=== PATIENT | female | born 1985 | race Caucasian/White ===

== ENCOUNTER → 2016-08-15 | Outpatient (CLI) | payer OTHER ==
[~2016-08-15] MED LIST: ALLEGRA180 MG PO; AMBIEN10 MG PO; AMOXICILLIN500 MG PO; ATARAX10 MG PO; BACTRIM DS 8001 TAB PO; BIAXIN500 MG PO; BIRTH CONTROL1 EAC1 PO; BRIN10TA PO; CELEXA40 MG PO; CLARITIN10 MG PO; CORDROL20 MG PO; DAYPRO600 M1 PO; DEPAKOTE250 MG PO; DIFLUCAN150 MG PO; Depakote500 MG PO; ESKALITH300 MG PO; GLIPIZIDE2.5 MG PO; HUMALOG100 U/ML SC; HYDROCODONE BIT1 T11 PO; IBU-8800 MG PO; INVEGA1.5 MG PO; LANTUS100 U/ML SC; LITHIUM PO; LOMOTIL 0.025 M1 TAB PO; MACROBID100 M1 PO; MEDROL DOSEPAK4 MG PO; METFORMIN HCL1000 MG PO; METFORMIN1000 MG PO; METFORMIN500 MG PO; MIDRIN (DURADR1 CAP PO; MOTRIN800 MG PO; Metformin Hydr500 MG PO; NAPROSYN500 MG PO; PAXIL PO; PAXIL40 MG PO; PHENERGAN25 M1 PO; PROVENTIL0.09 MG/AC IH; PYRIDIUM200 MG PO; SEROQUEL XR300 MG PO; TOPAMAX2 MG PO; TRAMADOL HCL50 MG PO; VICTOZA6 MG/ML SC; VITAMIN D1000 IU PO; ZOFRAN ODT4 MG SL; ZOLOFT50 MG PO
[2016-08-15 09:15] LABS: BASO % 0.2 % (0.0-1.0); EOS # 0.1 10*3/uL (0.0-0.4); EOS % 1.1 % (1.0-4.0); HEMATOCRIT 32.6 % (37.0-47.0); HEMOGLOBIN 11.1 g/dl (12.0-16.0); LYMPH # 1.6 10*3/uL (1.3-4.4); LYMPH % 28.3 % (27.0-41.0); MEAN CELL VOLUME 94.2 fl (81.0-99.0); MEAN CORPUSCULAR HGB 32.1 pg (27.0-31.0); MEAN PLATELET VOLUME 9.5 fl (9.6-12.3); MONO # 0.3 10*3/uL (0.1-1.0); MONO % 4.9 % (3.0-9.0); NEUT # 3.6 10*3/uL (2.3-7.9); PLATELET COUNT AUTOMATED 232 10*3/uL (130-400); RED BLOOD COUNT 3.46 10*6/uL (4.10-5.10); RED CELL DISTRI WIDTH 13.4 % (0-14.5); WHITE BLOOD COUNT 5.5 10*3/uL (4.8-10.8)
[2016-08-15 09:17] LABS: BILIRUBIN NEGATIVE (NEGATIVE); BLOOD NEGATIVE (NEGATIVE); CLARITY SL CLOUDY (CLEAR); COLOR YELLOW (YELLOW); GLUCOSE NEGATIVE (NEGATIVE); KETONE 1+ (NEGATIVE); LEUKO ESTERASE NEGATIVE (NEGATIVE); NITRITE NEGATIVE (NEGATIVE); PROTEIN NEGATIVE (NEGATIVE); UROBILINOGEN 0.2 E.U./dl (0.2-1.0)
[2016-08-15 09:45] LABS: CHLORIDE 105 mmol/L (98-107); POTASSIUM 4.1 mmol/L (3.5-5.1); SODIUM 139 mmol/L (136-145)
[2016-08-15 10:01] LABS: ALBUMIN 2.9 gm/dl (3.1-4.5); ALKALINE PHOSPHATASE 63 U/L (45-117); BILIRUBIN, DIRECT < 0.1 mg/dL (0.0-0.2); BILIRUBIN, TOTAL 0.6 mg/dl (0.2-1.0); BUN 7 mg/dl (7-24); CARBON DIOXIDE 23 mmol/L (21-32); CHOLESTEROL 162 mg/dL (<200); EST GLOM FILT AFRICAN AMERICAN > 60 ml/min; GLUCOSE 150 mg/dL (65-99); HDL CHOLESTEROL 51 mg/dl (40-60); LDL CHOLESTEROL 70 mg/dL (9-159); MAGNESIUM 1.9 mg/dL (1.5-2.1); SGOT/AST 22 IU/L (3-35); SGPT/ALT 22 U/L (12-78); TOTAL PROTEIN 6.4 gm/dL (6.4-8.2); TRIGLYCERIDES 207 mg/dl (<150); VLDL CHOLESTEROL 41 mg/dL (6-40)
[2016-08-15 10:27] LABS: VITAMIN D, 25-HYDROXY 28.4 ng/mL (30-100)
[2016-08-15 10:28] LABS: HEMOGLOBIN A1c 6.7 % (4.8-5.6); PTH INTACT 34.1 pg/mL (14.0-72.0)
[2016-08-15 10:28] LABS: BACTERIA TRACE; URINE REFLEX COMMENT NO (NO)
[2016-08-16 08:14] LABS: MICRO ALBUMIN/CRE RATIO 2.8 (0.0-30.0)
== END | disposition home or self-care (01) ==
LOC: LAB 08:35
PROVIDERS: Internal Medicine
DX: E11.22 Type 2 diabetes mellitus with diabetic chronic kidney disease (principal); E11.21 Type 2 diabetes mellitus with diabetic nephropathy; E11.40 Type 2 diabetes mellitus with diabetic neuropathy, unspecified; N18.1 Chronic kidney disease, stage 1; E11.65 Type 2 diabetes mellitus with hyperglycemia; E78.5 Hyperlipidemia, unspecified; E55.9 Vitamin D deficiency, unspecified

== ENCOUNTER → 2017-05-01 | Outpatient (CLI) | payer OTHER | END | disposition home or self-care (01) | LOC: RAD 15:52 | DX: M53.3 Sacrococcygeal disorders, not elsewhere classified (principal); M25.551 Pain in right hip; M25.552 Pain in left hip ==

== ENCOUNTER → 2017-10-17 | Outpatient (CLI) | payer OTHER ==
[~2017-10-17] MED LIST changes: +CIPRO500 MG PO; +TOUJEO SOL300 UNIT/1 SC; +TRULICITY1.5 MG/0.5 SC
[2017-10-17 08:42] LABS: BILIRUBIN NEGATIVE (NEGATIVE); BLOOD 2+ (NEGATIVE); CLARITY SL CLOUDY (CLEAR); COLOR YELLOW (YELLOW); GLUCOSE 3+ (NEGATIVE); KETONE NEGATIVE (NEGATIVE); LEUKO ESTERASE NEGATIVE (NEGATIVE); NITRITE NEGATIVE (NEGATIVE); PH 5.5 (5.0-9.0); SPECIFIC GRAVITY 1.025 (1.005-1.030); UROBILINOGEN 0.2 E.U./dl (0.2-1.0)
[2017-10-17 08:55] LABS: MUCOUS TRACE; RBC 16-20 rbc/hpf (0-2)
[2017-10-17 09:01] LABS: BASO % 0.2 % (0.0-1.0); EOS # 0.1 10*3/uL (0.0-0.4); EOS % 2.2 % (1.0-4.0); HEMOGLOBIN 14.5 g/dl (12.0-16.0); LYMPH # 1.7 10*3/uL (1.3-4.4); LYMPH % 41.1 % (27.0-41.0); MEAN CELL VOLUME 93.1 fl (81.0-99.0); MEAN CORPUSCULAR HGB 31.4 pg (27.0-31.0); MEAN CORPUSCULAR HGB CONC 33.7 g/dl (33.0-37.0); MEAN PLATELET VOLUME 9.7 fl (9.6-12.3); MONO # 0.2 10*3/uL (0.1-1.0); MONO % 5.8 % (3.0-9.0); NEUT # 2.1 10*3/uL (2.3-7.9); NEUT % 50.5 % (47.0-73.0); PLATELET COUNT AUTOMATED 234 10*3/uL (130-400); RED BLOOD COUNT 4.62 10*6/uL (4.10-5.10); RED CELL DISTRI WIDTH 12.1 % (0-14.5); WHITE BLOOD COUNT 4.2 10*3/uL (4.8-10.8)
[2017-10-17 09:12] LABS: ALBUMIN 3.6 gm/dl (3.1-4.5); ALKALINE PHOSPHATASE 98 U/L (45-117); BILIRUBIN, DIRECT 0.1 mg/dL (0.0-0.2); BUN 11 mg/dl (7-24); CHLORIDE 103 mmol/L (98-107); CHOLESTEROL 187 mg/dL (<200); CREATININE 0.64 mg/dL (0.55-1.02); FREE T4 1.05 ng/dl (0.76-1.46); HDL CHOLESTEROL 34 mg/dl (40-60); LDL CHOLESTEROL 110 mg/dL (9-159); POTASSIUM 4.3 mmol/L (3.5-5.1); SGOT/AST 69 IU/L (3-35); SGPT/ALT 98 U/L (12-78); SODIUM 139 mmol/L (136-145); TOTAL PROTEIN 6.9 gm/dL (6.4-8.2); TRIGLYCERIDES 215 mg/dl (<150); VLDL CHOLESTEROL 43 mg/dL (6-40)
[2017-10-17 09:45] LABS: VITAMIN D, 25-HYDROXY 20.1 ng/mL (30-100)
[2017-10-18 10:07] LABS: CREATININE,URINE 110.9 mg/dL (Not Estab.); MICRO ALBUMIN/CRE RATIO 24.8 (0.0-30.0)
== END | disposition home or self-care (01) ==
LOC: LAB 07:28 → US 07:30
PROVIDERS: Internal Medicine
DX: K76.0 Fatty (change of) liver, not elsewhere classified (principal); E78.5 Hyperlipidemia, unspecified; E55.9 Vitamin D deficiency, unspecified; E04.9 Nontoxic goiter, unspecified; R10.13 Epigastric pain; R74.8 Abnormal levels of other serum enzymes; E11.22 Type 2 diabetes mellitus with diabetic chronic kidney disease; E11.21 Type 2 diabetes mellitus with diabetic nephropathy; E11.65 Type 2 diabetes mellitus with hyperglycemia; N18.1 Chronic kidney disease, stage 1

== ENCOUNTER → 2017-11-11 | Outpatient (CLI) | payer OTHER | END | disposition home or self-care (01) | LOC: CT 11-06 11:00 | DX: K57.90 Diverticulosis of intestine, part unspecified, without perforation or abscess without bleeding (principal); K76.0 Fatty (change of) liver, not elsewhere classified; R10.31 Right lower quadrant pain ==

== ENCOUNTER → 2017-12-01 | Day surgery (SDC) | payer OTHER ==
[~2017-12-01] VITALS: Ht 162.5 cm; Wt 107.0 kg
--- NOTE | ~2017-12-01 | PROC NOTE ---
[place], [place] PROCEDURE NOTE NAME: [id number] UNIT #: [id number] ROOM: DOCTOR: MEAGAN DECKER,PRISCILA BIRTHDATE: [birth year] DOS: PROCEDURE: Esophagogastroduodenoscopy and biopsy. INDICATION: GERD and history of hepatic fibrosis. An informed consent was obtained from the patient after indication of procedure, the alternatives and potential complications were explained to her. PROCEDURE MEDICATION: Sedation was administered by Anesthesiology Department. Scope used was Olympus diagnostic adult upper endoscope GIF-180, depth of insertion was to the descending duodenum. FINDINGS: After adequate sedation, the patient was placed in left lateral decubitus position. The scope was introduced under direct visualization through the upper esophageal sphincter into the esophagus. Esophageal mucosa showed evidence of moderate erosive esophagitis. The GE junction identified at 38 cm from incisors with scattered erosions. The stomach was then intubated and gastric mucosa inspected. Moderate gastritis was seen with no discrete ulcers or active bleeding. A JACQUELINE test was performed from the gastric antrum and body. On retroflexed views in the fundus, a grade 1 hiatal hernia was identified. Pylorus was intubated easily. The duodenal bulb and descending duodenum were within normal range. The scope was then withdrawn after the stomach was decompressed. The patient tolerated the procedure well. IMPRESSION: 1. Moderate erosive esophagitis. 2. Gastritis. 3. Small hiatal hernia. PLAN: We will review the JACQUELINE test results and treat the patient accordingly. Office followup will be scheduled in 2-3 weeks. PRISCILA RHODES MD CM:PROCNOTE:PROCEDURE NOTE [id number] DYLAN RHODES MD
[2017-12-01 07:15] VITALS: BP 137/71
[2017-12-01 08:05] VITALS: BP 103/56
[2017-12-01 08:20] VITALS: BP 104/58
[2017-12-01 08:35] VITALS: BP 118/73
== END | disposition home or self-care (01) ==
LOC: SDC 11-28 08:00
DX: K29.70 Gastritis, unspecified, without bleeding (principal); K21.0 Gastro-esophageal reflux disease with esophagitis; K44.9 Diaphragmatic hernia without obstruction or gangrene; E11.22 Type 2 diabetes mellitus with diabetic chronic kidney disease; E66.9 Obesity, unspecified; N18.1 Chronic kidney disease, stage 1; F31.9 Bipolar disorder, unspecified; F17.210 Nicotine dependence, cigarettes, uncomplicated; Z79.4 Long term (current) use of insulin; Z68.41 Body mass index [BMI] 40.0-44.9, adult; Z98.890 Other specified postprocedural states; Z98.51 Tubal ligation status; Z80.41 Family history of malignant neoplasm of ovary

== ENCOUNTER → 2017-12-05 | Outpatient (CLI) | payer OTHER | END | disposition home or self-care (01) | LOC: US 11:00 | DX: L03.818 Cellulitis of other sites (principal) ==

== ENCOUNTER 2017-12-07 20:36 | Emergency (ER) | payer OTHER ==
[~2017-12-07] VITALS: Ht 162.5 cm; Wt 106.6 kg
[~2017-12-07 20:36] MED LIST changes: -CIPRO500 MG PO
[2017-12-07 21:16] LABS: BASO % 0.3 % (0.0-1.0); EOS # 0.1 10*3/uL (0.0-0.4); EOS % 1.5 % (1.0-4.0); HEMOGLOBIN 14.3 g/dl (12.0-16.0); LYMPH # 2.4 10*3/uL (1.3-4.4); LYMPH % 36.2 % (27.0-41.0); MEAN CELL VOLUME 91.7 fl (81.0-99.0); MEAN CORPUSCULAR HGB CONC 34.9 g/dl (33.0-37.0); MEAN PLATELET VOLUME 9.6 fl (9.6-12.3); MONO # 0.4 10*3/uL (0.1-1.0); MONO % 5.3 % (3.0-9.0); NEUT # 3.7 10*3/uL (2.3-7.9); NEUT % 56.2 % (47.0-73.0); PLATELET COUNT AUTOMATED 229 10*3/uL (130-400); RED BLOOD COUNT 4.47 10*6/uL (4.10-5.10); RED CELL DISTRI WIDTH 11.9 % (0-14.5); WHITE BLOOD COUNT 6.7 10*3/uL (4.8-10.8)
[2017-12-07 21:32] LABS: ALBUMIN 3.6 gm/dl (3.1-4.5); ALKALINE PHOSPHATASE 93 U/L (45-117); BUN 9 mg/dl (7-24); CHLORIDE 103 mmol/L (98-107); CREATININE 0.64 mg/dL (0.55-1.02); POTASSIUM 4.1 mmol/L (3.5-5.1); SGOT/AST 37 IU/L (3-35); SGPT/ALT 58 U/L (12-78); SODIUM 137 mmol/L (136-145); TOTAL PROTEIN 7.5 gm/dL (6.4-8.2)
[2017-12-07 23:04] LABS: BILIRUBIN NEGATIVE (NEGATIVE); BLOOD NEGATIVE (NEGATIVE); CLARITY SL CLOUDY (CLEAR); COLOR YELLOW (YELLOW); GLUCOSE TRACE (NEGATIVE); KETONE NEGATIVE (NEGATIVE); LEUKO ESTERASE NEGATIVE (NEGATIVE); NITRITE NEGATIVE (NEGATIVE); SPECIFIC GRAVITY >= 1.030 (1.005-1.030); UROBILINOGEN 0.2 E.U./dl (0.2-1.0)
[2017-12-07 23:07] LABS: BACTERIA TRACE; EPITHELIAL CELLS 45-50; YEAST TRACE
[2017-12-07 23:08] LABS: WBC 0-2 wbc/hpf (0-5)
[2017-12-08] MEDS ORDERED: CIPRO500 MG PO (00:43)
== END 2017-12-08 00:58 | disposition home or self-care (01) ==
LOC: ED 20:36
PROVIDERS: Emergency Medicine
DX: L03.311 Cellulitis of abdominal wall (principal); E11.22 Type 2 diabetes mellitus with diabetic chronic kidney disease; N18.1 Chronic kidney disease, stage 1; Z79.899 Other long term (current) drug therapy; Z79.4 Long term (current) use of insulin

== ENCOUNTER 2018-04-06 22:05 | Emergency (ER) | payer OTHER ==
[~2018-04-06] VITALS: Ht 162.5 cm; Wt 106.1 kg
[~2018-04-06 22:05] MED LIST changes: +CIPRO500 MG PO
[2018-04-06] MEDS ORDERED: ATARAX,VISTARIL50 MG PO (22:25)
== END 2018-04-06 23:14 | disposition home or self-care (01) ==
LOC: ED 22:05
DX: L50.9 Urticaria, unspecified (principal); B34.9 Viral infection, unspecified; E11.9 Type 2 diabetes mellitus without complications; Z79.2 Long term (current) use of antibiotics; Z79.4 Long term (current) use of insulin

== ENCOUNTER 2018-06-29 08:54 | Emergency (ER) | payer OTHER ==
[~2018-06-29] VITALS: Ht 162.5 cm; Wt 108.0 kg
[~2018-06-29 08:54] MED LIST changes: +ATARAX,VISTARIL50 MG PO
[2018-06-29] MEDS ORDERED: SEPTDS PO (09:17)
== END 2018-06-29 09:23 | disposition home or self-care (01) ==
LOC: ED 08:54
DX: L03.213 Periorbital cellulitis (principal); E11.9 Type 2 diabetes mellitus without complications; Z79.2 Long term (current) use of antibiotics; Z79.899 Other long term (current) drug therapy; Z79.4 Long term (current) use of insulin

== ENCOUNTER → 2018-07-11 | Outpatient (CLI) | payer OTHER ==
[~2018-07-11] MED LIST changes: +SEPTDS PO
== END | disposition home or self-care (01) ==
LOC: US 14:00
DX: E11.40 Type 2 diabetes mellitus with diabetic neuropathy, unspecified (principal); G62.9 Polyneuropathy, unspecified; M62.838 Other muscle spasm; I73.9 Peripheral vascular disease, unspecified; M79.89 Other specified soft tissue disorders

== ENCOUNTER → 2018-10-23 | Outpatient (CLI) | payer OTHER | END | disposition home or self-care (01) | LOC: LAB 08:29 | DX: E11.65 Type 2 diabetes mellitus with hyperglycemia (principal) ==

== ENCOUNTER → 2018-10-24 | Outpatient (CLI) | payer OTHER | END | disposition home or self-care (01) | LOC: LAB 08:29 | DX: E11.65 Type 2 diabetes mellitus with hyperglycemia (principal) ==

== ENCOUNTER → 2018-11-26 | Outpatient (CLI) | payer OTHER | END | disposition home or self-care (01) | LOC: RAD 18:12 | DX: R10.31 Right lower quadrant pain (principal) ==

== ENCOUNTER → 2019-04-12 | Outpatient (CLI) | payer OTHER | END | disposition home or self-care (01) | LOC: RAD 17:05 | DX: M54.5 Low back pain (principal); M25.551 Pain in right hip ==

== ENCOUNTER → 2019-10-17 | Outpatient (CLI) | payer OTHER | END | disposition home or self-care (01) | LOC: NM 10:20 | PROVIDERS: ATTEND Internal Medicine Gastroenterology | DX: R68.81 Early satiety (principal) ==

== ENCOUNTER → 2019-11-19 | Outpatient (CLI) | payer OTHER | END | disposition home or self-care (01) | LOC: RAD 08:29 | PROVIDERS: ATTEND Nurse Practitioner Family | DX: K76.0 Fatty (change of) liver, not elsewhere classified (principal); R11.0 Nausea; R11.10 Vomiting, unspecified; E11.65 Type 2 diabetes mellitus with hyperglycemia ==

== ENCOUNTER → 2019-11-21 | Outpatient (CLI) | payer OTHER | END | disposition home or self-care (01) | LOC: US 12:17 | PROVIDERS: ATTEND Nurse Practitioner Family | DX: K76.0 Fatty (change of) liver, not elsewhere classified (principal) ==

== ENCOUNTER → 2019-12-12 | Outpatient (CLI) | payer BC, OTHER ==
[~2019-12-12] MED LIST changes: +COLACE100 MG PO; +GLUCOPHAGE500 M1 PO; +NORCO 5-325 TA1 EACH PO; +OZEMPIC1 MG/0.75 SQ; +ZOFRAN4 MG PO
== END | disposition home or self-care (01) ==
LOC: NM 00:35
PROVIDERS: ATTEND Nurse Practitioner Family
DX: R10.11 Right upper quadrant pain (principal)

== ENCOUNTER → 2020-01-09 | Outpatient (CLI) | payer BC, OTHER | END | disposition home or self-care (01) | LOC: COVID19 10:08 | PROVIDERS: ATTEND Surgery | DX: Z01.812 Encounter for preprocedural laboratory examination (principal); Z20.828 Contact with and (suspected) exposure to other viral communicable diseases ==

== ENCOUNTER → 2020-01-11 | Outpatient (CLI) | payer BC, OTHER | END | disposition home or self-care (01) | LOC: COVID19 08:34 | PROVIDERS: ATTEND Nurse Practitioner Family | DX: Z20.828 Contact with and (suspected) exposure to other viral communicable diseases (principal) ==

== ENCOUNTER → 2020-01-16 | Day surgery (SDC) | payer BC, OTHER ==
[2020-01-13 13:16] VITALS: BP 126/76
[~2020-01-16] VITALS: Ht 162.5 cm; Wt 109.8 kg
[2020-01-16 11:54] VITALS: BP 129/65
[2020-01-16 12:09] VITALS: BP 121/56
[2020-01-16 12:22] VITALS: BP 128/50
[2020-01-16 12:39] VITALS: BP 120/58
[2020-01-16 12:53] VITALS: BP 113/56
== END ==
LOC: SDC 01-13 12:30
PROVIDERS: ATTEND Surgery
DX: K82.8 Other specified diseases of gallbladder (principal); K81.1 Chronic cholecystitis; F31.9 Bipolar disorder, unspecified; E28.2 Polycystic ovarian syndrome; E11.40 Type 2 diabetes mellitus with diabetic neuropathy, unspecified; E78.5 Hyperlipidemia, unspecified; I10 Essential (primary) hypertension; Z90.89 Acquired absence of other organs; Z79.899 Other long term (current) drug therapy; F41.9 Anxiety disorder, unspecified; Z87.891 Personal history of nicotine dependence